=== PATIENT | male | born 2000 | race Caucasian/White ===

== ENCOUNTER 2024-07-06 23:40 | Emergency (ER) | payer OTHER ==
[~2024-07-06] VITALS: Ht 165.1 cm; Wt 68.0 kg
[2024-07-07] MEDS ORDERED: MELOXICAM15 MG PO (03:41)
== END 2024-07-07 04:22 | disposition home or self-care (01) ==
LOC: ED 23:40
DX: S99.921A Unspecified injury of right foot, initial encounter (principal); J45.909 Unspecified asthma, uncomplicated; Z91.030 Bee allergy status; Z88.0 Allergy status to penicillin; Z91.011 Allergy to milk products; Z91.012 Allergy to eggs; Z88.8 Allergy status to other drugs, medicaments and biological substances; W22.8XXA Striking against or struck by other objects, initial encounter; Y93.89 Activity, other specified; Y92.89 Other specified places as the place of occurrence of the external cause; Y99.8 Other external cause status

== ENCOUNTER 2025-08-04 03:26 | Emergency (ER) | payer OTHER ==
[~2025-08-04] VITALS: Ht 172.7 cm; Wt 77.1 kg
[~2025-08-04 03:26] MED LIST: MELOXICAM15 MG PO
[2025-08-04] MEDS ORDERED: NAPROXEN250 MG PO (05:51)
== END 2025-08-04 05:55 | disposition home or self-care (01) ==
LOC: ED 03:26
DX: S80.01XA Contusion of right knee, initial encounter (principal); J45.909 Unspecified asthma, uncomplicated; Z91.030 Bee allergy status; Z88.0 Allergy status to penicillin; Z91.0120 Allergy to eggs, unspecified; Z91.0110 Allergy to milk products, unspecified; W22.8XXA Striking against or struck by other objects, initial encounter; Y93.89 Activity, other specified; Y92.89 Other specified places as the place of occurrence of the external cause; Y99.8 Other external cause status